=== PATIENT | male | born 2005 | race Caucasian/White ===

== ENCOUNTER 2024-10-10 18:35 | Emergency (ER) | payer OTHER ==
[2024-10-10 19:35] VITALS: BP 120/77; PULSE 78
== END 2024-10-10 19:36 | disposition home or self-care (01) ==
LOC: FB.ED 18:35
DX: R07.89 Other chest pain (principal); K27.9 Peptic ulcer, site unspecified, unspecified as acute or chronic, without hemorrhage or perforation; F17.210 Nicotine dependence, cigarettes, uncomplicated; Z91.09 Other allergy status, other than to drugs and biological substances
CPT/HCPCS: 93005; 93010; 99284